=== PATIENT | female | born 1965 | race Caucasian/White ===

== ENCOUNTER → 2018-09-22 | Day surgery (SDC) | payer OTHER ==
[2018-09-18 10:47] VITALS: BMI 43.5
[~2018-09-22] MED LIST: ALPRAZolam 0.25 MG TAB PO PRN; ALPRAZolam 0.5 MG TAB PO PRN; ASPIRIN 325 MG TAB PO ONE; ATORVASTATIN 80 MG TAB PO ONE; HEPARIN SODIUM 1,000 UN/ML (10ML VL) IV ONE; HEPARIN SODIUM 1,000 UN/ML (10ML VL) ONE; IOPAMIDOL-370 125ML BTL INJ ONE; LIDOCAINE 1% INJ 10MG/ML (20 ML MDV) ONE; LIDOCAINE 1% INJ 10MG/ML (20 ML MDV) SQ ONE; MIDAZOLAM 2 MG/2 ML VIAL IV ONE; NITROGLYCERIN SL TABS 0.4 MG TAB SUBLINGUAL PRN; RX INFO: IV CONTRAST WAS GIVEN 1 EACH MISC MISCELLANE PRN; SODIUM CHLORIDE 0.9% 1,000 ML IV ONE; SODIUM CHLORIDE 0.9% 1,000 ML IV SCH; SODIUM CHLORIDE 0.9% 1,000 ML in EMPTY BAG 1 BAG IV ONE; VERAPAMIL 2.5 MG/ML 2 ML AMP ONE
[2018-09-22 08:13] VITALS: TEMP 98.4
[2018-09-22 08:23] LABS: Glucose,Whole Blood 183 mg/dL (75-99)
[2018-09-22] MEDS: VERAPAMIL SYRINGE (5 MG/10 ML) INTRAARTER ONE ×2 (09:40→09:50)
--- NOTE | 2018-09-22 11:41 | CC ---
CARDIAC CATHETERIZATION REPORT DATE OF SERVICE: September 22, 2018. PERFORMING PHYSICIAN: Nir Rucker MD, fundraising director. PROCEDURE PERFORMED: Selective right and left coronary angiogram. INDICATION: This is a pleasant, 53-year-old female patient with diabetes, hypertension, and dyslipidemia who continues to have chest discomfort. She underwent a stress test and that came in to be unremarkable, but because of the continuous chest discomfort, I did recommend proceeding with coronary angiogram. APPROACH: Right radial artery. COMPLICATION: None. LEVEL OF SEDATION: Moderate with sedation length of 16 minutes. PROCEDURE DESCRIPTION: After obtaining an informed consent, the patient was brought to the cardiac semiconductor lab technician. The right radial artery was cannulated using micropuncture technique and a micropuncture wire passed easily then I placed a 6-[place] sheath in the right radial artery. After that, I did give the patient 2 mg of verapamil IA and 10,000 units of heparin IV. I did selective right and left coronary angiogram using JR4 and JL3.5 catheters. Left heart catheterization was performed using 5-[place] pigtail catheter. The procedure was completed without any complication. SELECTIVE CORONARY ANGIOGRAM: 1. The right coronary artery is a large caliber vessel. It is a dominant vessel. It is angiographically normal. It distally bifurcates into PDA and PLV branches, both are angiographically normal. 2. The left main is angiographically normal. It bifurcates into the circumflex and left anterior descending artery. 3. Left circumflex is a large caliber vessel. It is a nondominant vessel. The mid circumflex gives rise into a large OM branch which bifurcates into separate branches. They appear to be angiographically normal. 4. The LAD: The proximal LAD is angiographically normal. The mid LAD is normal and the LAD distally appeared to be normal. HEMODYNAMICS: The left ventricular end-diastolic pressure was 12 mmHg and no gradient was identified across aortic valve. CONCLUSION: 1. Normal coronary angiogram. 2. Normal left ventricular end-diastolic pressure. POSTPROCEDURE MANAGEMENT: 1. Medical treatment. 2. Follow up with the patient. MMODL / IJN: [id number] /
[2018-09-22 14:46] VITALS: RESP 16
[2018-09-22 14:49] VITALS: BP 138/75; PULSE 67
== END | disposition home or self-care (01) ==
LOC: CATHCVL 07:31
PROVIDERS: ATTEND Internal Medicine Interventional Cardiology
DX: R07.89 Other chest pain (principal); R06.02 Shortness of breath; R00.2 Palpitations; E78.5 Hyperlipidemia, unspecified; I10 Essential (primary) hypertension; E11.9 Type 2 diabetes mellitus without complications; E78.00 Pure hypercholesterolemia, unspecified; F17.200 Nicotine dependence, unspecified, uncomplicated; Z88.2 Allergy status to sulfonamides; Z88.0 Allergy status to penicillin; Z88.1 Allergy status to other antibiotic agents; Z82.49 Family history of ischemic heart disease and other diseases of the circulatory system; Z79.4 Long term (current) use of insulin; Z79.899 Other long term (current) drug therapy
CPT/HCPCS: C1769; C1894; 81025; 93458